=== PATIENT | male | born 1955 | race Hispanic/Latino ===

== ENCOUNTER 2022-10-06 06:40 | Day surgery (SDC) | payer OTHER ==
[2022-10-04 09:46] LABS: BASOPHILS % (AUTO) 0.6 % (0.0-5.0); EOSINOPHILS % (AUTO) 1.5 % (0.0-8.0); HEMATOCRIT 37.1 % (42-54); LYMPHOCYTES % (AUTO) 30.2 % (21.0-51.0); MEAN CORPUSCULAR HEMOGLOBIN 34.8 pg (27.0-33.0); MEAN CORPUSCULAR HGB CONC 33.7 g/dL (32.0-36.0); MEAN CORPUSCULAR VOLUME 103.3 fL (79-99); MONOCYTES % (AUTO) 5.5 % (3.0-13.0); NEUTROPHILS % (AUTO) 61.8 % (40.0-77.0); NUCLEATED RED BLOOD CELLS 0.3 % (0.0-0.19); PLATELET COUNT (AUTO) 267 K/uL (130-400); RED BLOOD CELL COUNT(AUTO) 3.59 MIL/uL (4.50-6.20); RED CELL DISTRIBUTION WIDTH 14.6 % (11.0-15.5); WHITE BLOOD COUNT (AUTO) 6.9 K/uL (4.8-10.8)
[2022-10-04 13:24] VITALS: BP 147/77
[2022-10-06] VITALS (15 sets, daily range): BP systolic 100–135; BP diastolic 51–76
[~2022-10-06] VITALS: Ht 167.6 cm; Wt 87.4 kg
[~2022-10-06 06:40] MED LIST: 0.9%NACL 100ML 100 ML IV SCH; CEFAZOLIN SODIUM 2 GM VIAL IVPB SCH; FERR-82 PO
[2022-10-06] MEDS ORDERED: LACTATED RINGERS 1000ML 1,000 ML IV ONE (06:57)
[2022-10-06] MEDS ORDERED: BUPIVACAINE/PF 0.5% 30ML VIAL ONE (07:28)
[2022-10-06] MEDS ORDERED: SUCCINYLCHOLINE 200MG/10ML SYR ONE (07:36)
[2022-10-06] MEDS ORDERED: MIDAZOLAM HCL 1 MG/ML 2ML VIAL ONE (07:36)
[2022-10-06] MEDS ORDERED: GLYCOPYRROLATE 1 MG/5 ML SYRINGE ONE (07:36)
[2022-10-06] MEDS ORDERED: ROCURONIUM 10MG/1ML SYR 10 MG/ML ML ONE ×2 (07:36→08:52)
[2022-10-06] MEDS ORDERED: NEOSTIGMINE 5MG/5ML SYR IV ONE (07:36)
[2022-10-06] MEDS ORDERED: PROPOFOL 10 MG/ML 20ML VIAL IV ONE (07:36)
[2022-10-06] MEDS ORDERED: ONDANSETRON 4MG INJ ONE (07:36)
[2022-10-06] MEDS ORDERED: DEXAMETHASONE SOD PHOSPHATE 10MG/ML 1ML VIAL ONE (07:36)
[2022-10-06] MEDS ORDERED: LIDOCAINE PF 100MG/5ML (2%) SYRINGE 5ML ONE (07:36)
[2022-10-06] MEDS ORDERED: FENTANYL CITRATE PF 50 MCG/1 ML 2ML VIAL ONE (07:37)
[2022-10-06] MEDS ORDERED: LIDOCAINE 1%-EPI 1:100,000 20 ML VIAL IJ ONE ×2 (07:38→08:29)
[2022-10-06] MEDS ORDERED: BUPIVACAINE/PF 0.5% 30ML VIAL INJ ONE (08:30)
[2022-10-06] MEDS ORDERED: CEFAZOLIN SODIUM 2 GM VIAL IVPB ONE (08:45)
[2022-10-06] MEDS ORDERED: KETOROLAC 30MG VIAL (30MG/ML) ONE (09:31)
== END 2022-10-06 11:20 | disposition home or self-care (01) ==
LOC: DAH 06:40
PROVIDERS: ATTEND Surgery
DX: K40.90 Unilateral inguinal hernia, without obstruction or gangrene, not specified as recurrent (principal); Z20.822 Contact with and (suspected) exposure to COVID-19; D17.6 Benign lipomatous neoplasm of spermatic cord; D64.9 Anemia, unspecified
CPT/HCPCS: 85025; 87426; 36415; 49650; A6260; A4663; J7030; A4344; A4215 ×2; J7120; J3010; J3490 ×5; J0330; J1100; J2710; J2001; J2250; J2704; J2405; J1885; J0690 ×2; C1781; A4223; A4222; A4221; S2900; A4600